=== PATIENT | female | born 1965 | race Caucasian/White ===

== ENCOUNTER 2024-08-26 13:46 | Emergency (ER) | payer BC, MEDICARE ==
[2024-08-26] MEDS: Ketorolac 60 MG/2 ML SDV IM ONE (14:27)
[2024-08-26] MEDS: HYDROmorphone 1 MG/ML Syringe IM ONE (14:28)
== END 2024-08-26 15:45 | disposition home or self-care (01) ==
LOC: JD.ED 13:46
DX: S93.602A Unspecified sprain of left foot, initial encounter (principal); S30.0XXA Contusion of lower back and pelvis, initial encounter; W01.0XXA Fall on same level from slipping, tripping and stumbling without subsequent striking against object, initial encounter; Y93.89 Activity, other specified
CPT/HCPCS: 72100; 73630; 96372; 99283; J1171; J1885; 99284